=== PATIENT | male | born 1985 | race Caucasian/White ===

== ENCOUNTER 2021-03-27 19:49 | Emergency (ER) | payer SELFPAY ==
[~2021-03-27] VITALS: Ht 175.3 cm; Wt 72.6 kg
[~2021-03-27 19:49] MED LIST: NORCO 5-325 TA1 EACH PO
== END 2021-03-27 20:20 | disposition home or self-care (01) ==
LOC: ED 19:49
DX: S01.01XA Laceration without foreign body of scalp, initial encounter (principal); Y04.8XXA Assault by other bodily force, initial encounter; Z88.8 Allergy status to other drugs, medicaments and biological substances
CPT/HCPCS: 99283

== ENCOUNTER 2023-10-03 16:12 | Emergency (ER) | payer OTHER ==
[~2023-10-03] VITALS: Ht 175.3 cm; Wt 77.1 kg
[2023-10-03] MEDS ORDERED: HYDROCODON-ACE1 EA11 PO (17:58)
[2023-10-03] MEDS ORDERED: CENTANY30 GM TOP (17:58)
[2023-10-03] MEDS ORDERED: BACTRIM DS TAB1 EACH PO (17:58)
[2023-10-03 18:20] VITALS: BP 119/81
== END 2023-10-03 18:15 | disposition home or self-care (01) ==
LOC: ED 16:12
DX: L02.415 Cutaneous abscess of right lower limb (principal)
CPT/HCPCS: 10160; 99282-25; A9270

== ENCOUNTER 2023-10-10 21:39 | Emergency (ER) | payer OTHER ==
[~2023-10-10] VITALS: Ht 175.3 cm; Wt 77.0 kg
[~2023-10-10 21:39] MED LIST changes: +BACTRIM DS TAB1 EACH PO; +CENTANY30 GM TOP; +HYDROCODON-ACE1 EA11 PO
--- OUTSIDE RECORDS SUMMARY | 2023-10-10 21:46 | XMS ---
PreManage Notification: NORMAN CARR Security Medical Aide Events No recent Security Events currently on file CRITERIA MET - [facility] - 2 Visits in 30 Days CARE PROVIDERS Crisis, [facility]ty 10/26/2022-10/25/2023 Mobile PHONE: Unknown -Makenzie- Dentist: [employer] Assets Officer [facility] PHONE: [phone] [place] has no Care Guidelines for this patient. EJayshree VISIT COUNT (12 MO.) [address] [place] [address] TOTAL 2 NOTE: Visits indicate total known visits. ED/UCC VISIT TRACKING (12 MO.) 10/10/2023 21:40 [facility] [place] TYPE: Emergency COMPLAINT: - WOUND CHECK 10/03/2023 16:13 [facility] [place] TYPE: Emergency COMPLAINT: - SKIN PROBLEM DIAGNOSES: - Cutaneous abscess of right lower limb - Other specified soft tissue disorders INPATIENT VISIT TRACKING (12 MO.) No inpatient visits to display in this time frame [email or web address]
[2023-10-10 22:21] LABS: BASOPHILS 1.9 % (0-2); EOSINOPHILS 5.9 % (0-6); HEMATOCRIT 43.7 % (35.0-50.0); HEMOGLOBIN 14.7 g/dL (12.0-18.0); LYMPHOCYTES 9.5 % (24-44); MCH 28.6 (27-36); MCHC 33.7 g/dl (30-36); MCV 84.8 fl (81-99); MONOCYTES 9.6 % (0-12); NEUTROPHILS 73.1 % (39-80); PLATELET COUNT 323 K/uL (140-440); RBC 5.15 M/ul (4.3-5.7)
[2023-10-10 22:38] LABS: ALBUMIN 3.4 g/dL (3.4-5.0); ALBUMIN/GLOBULIN RATIO 0.74 (1.1-2.4); ANION GAP 10.9 (7-21); BILIRUBIN, TOTAL 0.2 ng/dL (0.2-1.0); BUN/CREATININE RATIO 8.13 (6.0-28.6); CALCIUM 8.4 mg/dL (8.5-10.1); CREATININE, SERUM 1.23 mg/dL (0.70-1.30); POTASSIUM 3.9 mmol/L (3.5-5.1)
[2023-10-10 22:41] LABS: LACTIC ACID, BLOOD 1.6 mmol/L (0.4-2.0)
[2023-10-10 23:55] LABS: BILIRUBIN, URINE NEGATIVE (negative); BLOOD/HGB, URINE NEGATIVE (Negative); KETONE, URINE NEGATIVE (Negative); LEUK ESTERASE, URINE NEGATIVE (negative); NITRITE, URINE NEGATIVE (negative)
[2023-10-11] MEDS ORDERED: DOXYCYCLINE HY100 MG PO (00:29)
[2023-10-11 01:01] VITALS: BP 103/67
== END 2023-10-11 01:01 | disposition home or self-care (01) ==
LOC: ED 21:39
PROVIDERS: Emergency Medicine
DX: L27.0 Generalized skin eruption due to drugs and medicaments taken internally (principal); T36.8X5A Adverse effect of other systemic antibiotics, initial encounter; S31.819A Unspecified open wound of right buttock, initial encounter; L08.9 Local infection of the skin and subcutaneous tissue, unspecified; X58.XXXA Exposure to other specified factors, initial encounter; Z88.1 Allergy status to other antibiotic agents; Z88.2 Allergy status to sulfonamides; Z88.8 Allergy status to other drugs, medicaments and biological substances
CPT/HCPCS: 36415; 71045; 74177; 80053; 81003; 83605; 85025; A9270; J0878; J7030; Q9967